=== PATIENT | female | born 1985 | race Caucasian/White ===

== ENCOUNTER → 2019-02-20 | Outpatient (CLI) | payer MEDICAID ==
[2017-04-11 20:45] VITALS: BP 142/81
--- NOTE | 2019-02-20 16:33 | RAD ---
Complete abdominal ultrasound 02/20/2019 11:00 AM Clinical History: Abdominal pain Technique: Ultrasound examination of the abdomen was performed, and multiple static images were submitted for review. Comparison: None Findings: The pancreas is poorly visualized secondary to overlying gas filled bowel. Visualized aorta and IVC are grossly unremarkable. The liver is poorly visualized. Portions of the liver obscured. The liver demonstrates increased echogenicity suggestive of hepatic steatosis. Liver is normal in size measuring 14 cm longitudinally. Small amount of sludge is noted in the dependent portion of the gallbladder. No wall thickening, or pericholecystic fluid is seen. Sonographic Negrete sign is reportedly negative. The common bile duct is nondilated measuring between 3 and 4 mm. The right kidney is normal in appearance measuring 11 cm in length. Left kidney is normal in appearance measuring 11.5 cm in length. The spleen is grossly normal in size. Impression: 1. Sludge within the dependent portion of the gallbladder 2. Probable hepatic steatosis Electronically signed by: Bernard Szymanski MD (02/20/2019 4:30 PM) [id number]
== END | disposition home or self-care (01) ==
LOC: US 10:45
PROVIDERS: ATTEND Family Medicine
DX: K82.8 Other specified diseases of gallbladder (principal)
CPT/HCPCS: 76700

== ENCOUNTER → 2020-02-03 | Outpatient (CLI) | payer MEDICAID ==
[2017-04-11 20:45] VITALS: BP 142/81
--- NOTE | 2020-02-04 10:33 | CARD ---
MR#: [id number] Date of Study: 02/03/2020 Ordering Physician: JONATAN MELARA, Referring Physician: JONATAN MELARA, Tech: Amada Reese [facility] APPROVED REPORT EXAM: Two-dimensional and M-mode echocardiogram with Doppler and color Doppler. Other Information Quality : Good INDICATION Palpitations 2D DIMENSIONS RVDd3.0 (2.9-3.5cm)Left Atrium(2D)3.1 (1.6-4.0cm) IVSd1.0 (0.7-1.1cm)Aortic Root(2D)2.7 (2.0-3.7cm) LVDd4.3 (3.9-5.9cm)LVOT Diameter2.0 (1.8-2.4cm) PWd0.7 (0.7-1.1cm)LVDs3.0 (2.5-4.0cm) FS (%) 21.2 %SV27.1 ml LVEF(%)60.0 (>50%) Aortic Valve AoV Peak Toy.127.1cm/sAoV VTI27.4cm AO Peak GR.6.5mmHgLVOT Peak Toy.131.5cm/s LVOT VTI 25.59cmAO Mean GR.4mmHg NAKIA (VMAX)3.74qr1RUV (VTI)2.89cm2 Mitral Valve MV E Rlzufsrl28.9cm/sMV DECEL [id number] MV A Tlsgwwfn39.5cm/sMV EOP88zc E/A Ratio1.4MVA (PHT)5.58cm2 TDI E/Lateral E'5.8E/Medial E'9.4 Tricuspid Valve TR P. Rtkkqclu791tz/sRAP MNQPVUIR3xwYn TR Peak Gr.99esYlNKCU47rkAe Pulmonary Vein S1 Lrquqbsr15.6cm/sD2 Axnrlgbs24.0cm/s LEFT VENTRICLE The left ventricle is normal size. There is normal left ventricular wall thickness. The left ventricu lar systolic function is normal. The Ejection Fraction is 55-60%. There is normal LV segmental wall m otion. The left ventricular diastolic function and filling is normal for age. RIGHT VENTRICLE The right ventricle is normal size. The right ventricular systolic function is normal. ATRIA The left atrium size is normal. The right atrium size is normal. The interatrial septum is intact wit h no evidence for an atrial septal defect or patent foramen ovale as noted on 2-D or Doppler imaging. AORTIC VALVE The aortic valve is normal in structure and function. Doppler and Color Flow revealed no significant aortic regurgitation. There is no significant aortic valvular stenosis. MITRAL VALVE The mitral valve is normal in structure and function. There is no evidence of mitral valve prolapse. There is no mitral valve stenosis. Doppler and Color-flow revealed trace mitral regurgitation. TRICUSPID VALVE The tricuspid valve is normal in structure and function. Doppler and Color Flow revealed trace tricus pid regurgitation. The PA pressure was estimated at 20 mmHg. There is no tricuspid valve stenosis. PULMONIC VALVE The pulmonary valve is normal in structure and function. Doppler and Color Flow revealed trace pulmon ic valvular regurgitation. There is no pulmonic valvular stenosis. GREAT VESSELS The aortic root is normal in size. The ascending aorta is normal in size. The IVC is normal in size a nd collapses >50% with inspiration. PERICARDIAL EFFUSION There is no evidence of significant pericardial effusion. Critical Notification Critical Value: No <Conclusion> The left ventricular systolic function is normal. The Ejection Fraction is 55-60%. There is normal LV segmental wall motion. Trace mitral regurgitation. Trace tricuspid regurgitation. The PA pressure was estimated at 20 mmHg. There is no evidence of significant pericardial effusion. Signed by : Vikas Arrington, Electronically Approved : 02/04/2020 10:33:16
== END | disposition home or self-care (01) ==
LOC: ECHO 14:33
PROVIDERS: ATTEND Internal Medicine Cardiovascular Disease
DX: R00.2 Palpitations (principal)
CPT/HCPCS: 93306